=== PATIENT | female | born 1950 ===

== ENCOUNTER 2017-10-20 06:35 | Day surgery (SDC) | payer BC ==
[2017-10-18 13:06] VITALS: BMI 30.2
[2017-10-20] MEDS ORDERED: Verapamil 0 ML ONE (06:50)
[2017-10-20] MEDS ORDERED: Lidocaine 2% Inj (20ml) ONE (06:50)
[2017-10-20] MEDS ORDERED: Phenylephrine 10 mg/ml Inj ONE (06:50)
[2017-10-20] MEDS ORDERED: Iohexol 350mgl/ml 50 ML ONE (06:51)
[2017-10-20] MEDS ORDERED: Iodixanol 320 MG/ML 100 ML BOTTLE IV ONE (06:51)
[2017-10-20] MEDS ORDERED: Iodixanol 320 MG/ML 200 ML BOTTLE IV ONE (06:51)
[2017-10-20] MEDS ORDERED: Nitroglycerin 50mg in D5W 0 MG/0 ML BOTTLE IV ONE (06:51)
[2017-10-20] MEDS ORDERED: HEPARIN SODIUM/NS 2,000 ML IV ONE (06:51)
[2017-10-20 07:26] LABS: BASO # 0.03 K/mm3 (0.0-2.0); BASO % 0.3 % (0.0-3.0); EOS # 0.2 (0.0-0.7); EOS % 1.7 % (1.5-5.0); GRAN # 6.09 (1.4-6.5); GRAN % 63.1 % (50.0-68.0); HEMOGLOBIN 12.7 g/dL (12.0-16.0); LYMPH # 2.6 (1.2-3.4); LYMPH % 26.6 % (22.0-35.0); MEAN CELL VOLUME 84.3 fl (80.0-105.0); MEAN CORPUSCULAR HGB CONC 33.2 g/dl (31.0-37.0); MEAN PLATELET VOLUME 9.5 fl (7.0-11.0); MONO # 0.8 (0.1-0.6); MONO % 8.3 % (1.0-6.0); RBC 4.53 10^6/uL (3.5-6.1); RED CELL DISTRIBUTION WIDTH 13.3 % (11.5-14.5); WHITE BLOOD COUNT 9.6 10^3/ul (4.5-11.0)
[2017-10-20 07:30] LABS: BLOOD UREA NITROGEN 20 mg/dL (7-21); CALCIUM 10.2 mg/dL (8.4-10.5); GFR AFRICAN-AMERICAN > 60; GFR NON-AFRICAN AMERICAN 55; HDL CHOLESTEROL 43 mg/dL (29-60); INR 1.03 (0.93-1.08); PARTIAL THROMBOPLASTIN TIME 28.7 Seconds (25.1-36.5); PROTHROMBIN TIME 11.8 SECONDS (9.4-12.5)
[2017-10-20 07:41] LABS: LDL CHOLESTEROL 50 mg/dL (0-129)
[2017-10-20] MEDS ORDERED: Midazolam 2 MG/2 ML VIAL ONE (08:34)
[2017-10-20] MEDS ORDERED: DiphenhydrAMINE 50 mg/ml Inj ONE (08:57)
[2017-10-20 16:50] VITALS: BP 132/92; PULSE 96; RESP 20; TEMP 99.4; O2SAT 97
--- NOTE | 2017-10-20 19:00 | CARD ---
APPROVED REPORT EKG Measurement Heart [id number] MT [id number] <Conclusion> Normal sinus rhythm Nonspecific T wave abnormality Prolonged QT Abnormal ECG
--- NOTE | 2017-10-20 22:21 | CARDCATH ---
PROCEDURE DATE: 10/20/2017 INDICATIONS: Mrs. Bobbi Dasilva is a very pleasant 66-year-old female who presented to [facility] 2 weeks ago with acute myocardial infarction involving the left circumflex coronary artery. She successfully underwent angioplasty and stenting of left circumflex artery and was noted to have high-grade LAD disease. She is brought back for stage intervention of the LAD diagonal bifurcation intervention. PROCEDURES PERFORMED: 1. Left heart catheterization with selective left and right coronary angiogram. 2. Left ventriculogram. 3. Percutaneous transluminal coronary angioplasty stenting of left anterior descending artery with deployment of 3.0 x 22-mm Resolute drug-eluting stent. Balloon angioplasty of the diagonal branch. A 7-[place] right femoral arterial access. Angio-Seal closure device for hemostasis. ANGIOGRAPHIC FINDINGS: Left main large size vessel, bifurcates into LAD and left circumflex coronary artery, left circumflex run in the AV groove, has obtuse marginal branch extending from the left circumflex into obtuse marginal branch, is widely patent. Circumflex in the AV groove has moderate 50% stenosis. LAD, large-sized vessel, bifurcates into two diagonal branches. Proximal LAD has the bifurcation of the diagonal, has a high-grade 80% stenosis, ostial diagonal has 90% stenosis. INTERVENTION PERFORMED: LAD was wired with a Precog wire and initially balloon angioplasty with a 2.0-mm balloon and subsequently a 3.0 x 22-mm Resolute drug-eluting stent was deployed. Subsequently, the wire was retrieved from the LAD and passed through the into the diagonal branch. Balloon angioplasty of the diagonal was done with a 1.5-mm balloon and subsequently a 2.0 balloon was used for kissing balloon angioplasty of the LAD diagonal. Final angiogram done showed regeneration down to 0% with VERA-3 flow. Right coronary artery patent with mild disease. EF of 45 to 50%. IMPRESSION: Successful percutaneous transluminal coronary angioplasty and stenting of proximal left anterior descending with deployment of 3.0 x 22-mm Resolute drug-eluting stent successful for ____ the diagonal branch. RECOMMENDATION: Continue dual-antiplatelet therapy for 1 year, guideline-directed therapy for CAD and mild CHF. Follow up with Dr. Ro in 1 to 2 weeks' time. Darren Ro MD cc: Dr. Logan Robb Job # [id number]
== END 2017-10-20 19:10 | disposition home or self-care (01) ==
LOC: CATH 06:35 → 2RNO 10:24 → CATH 19:10
PROVIDERS: ATTEND Internal Medicine Interventional Cardiology
DX: I21.9 Acute myocardial infarction, unspecified (principal); I25.10 Atherosclerotic heart disease of native coronary artery without angina pectoris; I11.0 Hypertensive heart disease with heart failure; I50.22 Chronic systolic (congestive) heart failure; E78.5 Hyperlipidemia, unspecified; Z95.5 Presence of coronary angioplasty implant and graft
CPT/HCPCS: 36415; 80048; 80061; 85025; 85175; 85610; 85730; 86850; 86900; 93005; 93458; 99152; 99153; C1725 ×4; C1760; C1769 ×3; C1874; C1887; C1894; C9600; J1200; J1644 ×2; J2250; J3010; J7040; Q9967